=== PATIENT | male | born 1975 | race Caucasian/White ===

== ENCOUNTER 2017-08-27 10:44 | Emergency (ER) | payer MEDICAID ==
--- NOTE | 2017-08-27 11:21 | Emergency Department Record ---
History of Present Illness - General Chief Complaint: Abdominal Pain Stated Complaint: ABD PAIN Time Seen by Provider: 08/27/17 11:00 Source: Patient Mode of Arrival: Ambulatory Limitations: No limitations - History of Present Illness Initial Comments: Pt with 3 month hx of "constant" pain in LLQ abdomen. Pt states it is a "fullness". Not sharp without radiation. No fever, chills, vomiting, no blood in stool, no urinary complaints, not sexually active. Normal BMs without constipation. Had upper and lower GI about 10 years ago. Pt relates recent of his nephew. Anxios and depressed regarding events one week ago. Hx of stated alcohol abuse but he has been good for a long period. Had one drink in last week. Not attending meetings or discussing with family. Denies suicidal thoughts. MD Complaint: Abdominal pain Onset/Timin -: Month(s) Location: LLQ Radiation: None Migration to: No migration, Epigastric Severity scale (1-10): 2 Quality: Other Consistency: Constant Improves With: Other Associated Symptoms: Denies other symptoms - Related Data Allergies Allergy/AdvReac Type Severity Reaction Status Date / Time No Known Drug Allergies Allergy Verified 12/07/15 08:43 Travel Screening - Travel/Exposure Within Last 30 Days Have you traveled within the last 30 days?: No - Travel/Exposure Within Last Year Have you traveled outside the [place] in the last year?: No - Additonal Travel Details Have you been exposed to anyone with a communicable illness?: No - Travel Symptoms Symptom Screening: None Review of Systems Constitutional: Denies: Chills, Fever, Weakness Eyes: Denies: Photophobia, Vision change ENT: Denies: Congestion Respiratory: Denies: Cough, Dyspnea Cardiovascular: Denies: Chest pain, Syncope Endocrine: Denies: Fatigue Gastrointestinal: Reports: As per HPI Genitourinary: Denies: Discharge, Dysuria, Frequency, Testicular pain Musculoskeletal: Denies: Back pain Skin: Denies: Bruising Neurological: Denies: Weakness Psychiatric: Reports: Anxiety Hematological/Lymphatic: Denies: Anemia Past Medical History - SOCIAL HISTORY Smoking Status: Never smoker Alcohol Use: Heavy Alcohol Use Comment: binge at times Drug Use Detail:: Marijuana - RESPIRATORY Hx Respiratory Disorders: No - CARDIOVASCULAR Hx Cardio Disorders: No - NEURO Hx Neuro Disorders: No - GI Hx GI Disorders: Yes Hx Ulcer: Yes - Hx Genitourinary Disorders: No - ENDOCRINE Hx Endocrine Disorders: No - PSYCH Hx Psych Problems: Yes Hx Anxiety: Yes - HEMATOLOGY/ONCOLOGY Hx Hematology/Oncology Disorders: No Family Medical History Any Significant Family History?: No Family Hx Comment (NOT TO BE USED IN PLACE OF ITEMS BELOW): Mother had PUD, Father had colitis Physical Exam - General General Appearance: Alert, Oriented x3, No acute distress Limitations: No limitations - Head Head exam: Atraumatic - Eye Eye exam: Normal appearance, PERRL, EOMI. negative: Nystagmus - ENT ENT exam: Mucous membranes moist, Normal external ear exam, Normal orophraynx, TM's normal bilaterally - Neck Neck exam: Normal inspection - Respiratory Respiratory exam: Normal lung sounds bilaterally. negative: Rhonchi, Wheezes - Cardiovascular Cardiovascular Exam: Regular rate, Normal rhythm. negative: Irregular rhythm - GI/Abdominal GI/Abdominal exam: Soft, Normal bowel sounds. negative: Guarding, Tenderness - Rectal Rectal exam: Deferred, Other (No hernia with standing exam. Tender to LLQ without meass or rebound. ) - exam: Circumcision, Normal inspection. negative: Scrotal swelling, Testicular tenderness - Extremities Extremities exam: Normal inspection - Back Back exam: Reports: Normal inspection - Neurological Neurological exam: Alert, Normal gait, Oriented X3 - Psychiatric Psychiatric exam: Anxious, Other (recent of 14 year old nephew. ) - Skin Skin exam: Normal color Course Vital Signs 08/27/17 10:54 Temperature 97.7 F Pulse Rate 83 Blood Pressure 155/83 Pulse Ox 95 - Reevaluation(s) Reevaluation #1: 08/27/17 12:17 Pt without active AP. Has reactive anxiety due to nephews . Not suicidal. Has PMD for follow up and re eval of 3 month AP history. Will return here if increased pain or concerns. Medical Decision Making - Lab Data Result diagrams: 08/27/17 11:30 08/27/17 11:30 Disposition Disposition: Discharge Clinical Impression: Abdominal pain Disposition: Home, Self-Care Condition: (1) Good Instructions: Abdominal Pain (ED) Additional Instructions: See you family doctor in 1-2 days for recheck and continued care. Return to the ED sooner if worse or concerns. Forms: Patient Portal Access Quality - Quality Measures Quality Measures: N/A - Blood Pressure Screening Does Patient Have Any of the Following: No Blood Pressure Classification: Pre-Hypertensive BP Reading Systolic Measurement: 155 Diastolic Measurement: 83 Screening for High Blood Pressure: < Pre-Hypertensive BP, F/U Documented > [ G8950] Pre-Hypertensive Follow-up Interventions: Follow-up with rescreen every year.
[2017-08-27 11:36] LABS: URINE APPEARANCE CLEAR; URINE BILIRUBIN NEGATIVE (NEGATIVE); URINE BLOOD NEGATIVE (NEGATIVE); URINE COLOR YELLOW; URINE GLUCOSE (UA) NEGATIVE (NEGATIVE); URINE KETONE NEGATIVE (NEGATIVE); URINE LEUKOCYTE ESTERASE NEGATIVE (NEGATIVE); URINE NITRITE NEGATIVE (NEGATIVE); URINE PROTEIN NEGATIVE (NEGATIVE); URINE UROBILINOGEN 0.2 E.U./dL (0.20 - 1.00)
[2017-08-27 11:37] LABS: BASO % 0.5 % (0-6); EOS % 2.3 % (0-6); GRAN % 58.9 % (47-80); HEMATOCRIT 47.8 % (42.0-52.0); HEMOGLOBIN 15.8 gm/dl (14.0-18.0); LYMPH % 26.6 % (16-45); MEAN CELL VOLUME 93.4 fl (81-97); MEAN CORPUSCULAR HEMOGLOBIN 30.9 pg (27-33); MEAN CORPUSCULAR HGB CONC 33.1 g/dl (32-36); MEAN PLATELET VOLUME 10.7 fl (7.4-10.4); MONO % 11.7 % (0-9); PLATELET COUNT 260 K/uL (130-400); RED BLOOD COUNT 5.12 M/uL (4.40-5.70); RED CELL DISTRIBUTION WIDTH 13.1 % (11.5-14.5); WHITE BLOOD COUNT W/O DIFF 7.7 K/uL (4.2-12.2)
[2017-08-27 11:46] LABS: BLOOD UREA NITROGEN 14 mg/dL (6-20); CREATININE 0.7 mg/dL (0.7-1.2); EST GLOMERULAR FILTRATION RATE > 60 mL/min
[2017-08-27 11:49] LABS: GLUCOSE,RANDOM 121 mg/dL (74-109)
--- NOTE | 2017-08-28 14:00 | RADIOLOGY REPORT ---
EXAM: ACUTE ABDOMEN SERIES HISTORY: BLOATING FOR THREE WEEKS. TECHNIQUE: AP supine and upright views of the abdomen were obtained as well as an upright PA view of the chest. Comparison: CT abdomen and pelvis with contrast dated 12/07/15. FINDINGS: Gas and stool are noted throughout a nondilated colon to the level of the rectum. Stool volume is moderate. No bowel dilatation, worrisome air fluid level, mass, organomegaly, suspicious calcification, or free intraperitoneal air is seen. There are degenerative changes scattered within the visualized spine and hips. The heart is not enlarged and the pulmonary vasculature is nondilated. The lungs and pleural spaces are clear. IMPRESSION: 1. NO EVIDENCE OF AN ACUTE INTRAABDOMINAL PROCESS. STOOL VOLUME WITHIN THE COLON AND RECTUM IS MODERATE. 2. CHEST NEGATIVE FOR ACUTE CARDIOPULMONARY DISEASE. JOB NUMBER: [id number] MTDD
== END 2017-08-27 12:30 | disposition home or self-care (01) ==
LOC: ER 10:44
DX: R10.32 Left lower quadrant pain (principal); F41.1 Generalized anxiety disorder; F17.220 Nicotine dependence, chewing tobacco, uncomplicated
CPT/HCPCS: 74022; 80048; 81003; 85025; 99283

== ENCOUNTER 2018-08-23 12:11 | Emergency (ER) | payer SELFPAY ==
--- NOTE | 2018-08-23 12:42 | Emergency Department Record ---
History of Present Illness - General Chief complaint: Pain Stated complaint: CHEST STILL HURTS FROM FALLING ON 08/10/18 Time Seen by Provider: 08/23/18 12:22 Source: Patient Mode of Arrival: Ambulatory Limitations: No limitations - History of Present Illness Initial comments: The patient is here to the ER for "Follow Up." The patient was here 13 days ago after being intoxicated and falling and injuring his R chest. He has a large amount of blood in the R chest and was transferred to [facility] and receive a chest tube. He was discharged to home a week ago and has been weak ever since. Today he is here due to needing a work note. He has been having the R sided CP since the injury but does feel a little better today. There has been no cough, fever, chills, or L sided CP. He also denies any black or blood stools. MD Complaint: Other Onset/Timin -: Week(s) Severity scale (1-10): 6 Quality: Aching Consistency: Constant Improves with: Nothing Worsens with: Nothing Associated Symptoms: Other - Related Data Allergies Allergy/AdvReac Type Severity Reaction Status Date / Time No Known Drug Allergies Allergy Verified 08/23/18 12:20 Travel Screening - Travel/Exposure Within Last 30 Days Have you traveled within the last 30 days?: No Review of Systems Constitutional: Denies: Chills, Fever Eyes: Denies: Eye discharge ENT: Denies: Congestion Respiratory: Denies: Cough, Dyspnea Past Medical History - SOCIAL HISTORY Smoking Status: Never smoker Alcohol Use: Occasional Drug Use: None - RESPIRATORY Hx Respiratory Disorders: No - CARDIOVASCULAR Hx Cardio Disorders: Yes Hx Hypertension: Yes - NEURO Hx Neuro Disorders: No - GI Hx GI Disorders: Yes Hx Ulcer: Yes - Hx Genitourinary Disorders: No - ENDOCRINE Hx Endocrine Disorders: No - MUSCULOSKELETAL Hx Musculoskeletal Disorders: Yes - PSYCH Hx Psych Problems: Yes Hx Anxiety: Yes - HEMATOLOGY/ONCOLOGY Hx Hematology/Oncology Disorders: No Family Medical History Any Significant Family History?: Yes Family Hx Comment (NOT TO BE USED IN PLACE OF ITEMS BELOW): Mother had PUD, Father had colitis Physical Exam - General General Appearance: Alert, Oriented x3, Cooperative, No acute distress - Head Head exam: Atraumatic, Normocephalic, Normal inspection - Eye Eye exam: Normal appearance, PERRL - ENT Throat exam: Normal inspection. negative: Tonsillar erythema, Tonsillar exudate - Neck Neck exam: Normal inspection, Full ROM. negative: Tenderness - Respiratory Respiratory exam: Chest wall tenderness (Mild R sided chest wall tenderness.), Decreased breath sounds (R base.). negative: Normal lung sounds bilaterally - Cardiovascular Cardiovascular Exam: Regular rate, Normal rhythm, Normal heart sounds - GI/Abdominal GI/Abdominal exam: Soft, Normal bowel sounds. negative: Tenderness - Extremities Extremities exam: Normal inspection, Full ROM, Normal capillary refill. negative: Tenderness - Neurological Neurological exam: Alert, Normal gait, Oriented X3. negative: Abnormal gait, Altered, Motor sensory deficit Course Vital Signs 08/23/18 12:17 Temperature 98.1 F Pulse Rate 93 H Respiratory 18 Rate Blood Pressure 145/77 Pulse Ox 98 - Reevaluation(s) Reevaluation #1: The patient is resting comfortably. I did discuss the persistent anemia with the patient and the need for F/U next week with his PCP for recheck and to redraw a CBC. He is to take a Vitamin with Iron daily and use Tylenol for pain. He also is to be off work for a week. The patient's Hgb was 8.8 on 08/14 and 8.7 on 08/15 which was the day of discharge. 08/23/18 13:28 Medical Decision Making - Data Complexity MDM Data: Labs Ordered and/or Reviewed, X-Ray Ordered and/or Reviewed - Lab Data Result diagrams: 08/23/18 12:45 08/23/18 12:45 - Radiology Data Radiology results: Report reviewed (CXR: Decreasing R sided pleural effusion.) Disposition Disposition: Discharge Clinical Impression: Hemothorax, Pleural effusion Disposition: Home, Self-Care Condition: (2) Stable Instructions: Pleural Effusion (ED) Additional Instructions: Please use Tylenol for pain and take a daily vitamin with iron. Please see your family doctor later this week for recheck. Return to the ER for any worsening symptoms. Forms: Patient Portal Access Quality - Quality Measures Quality Measures: N/A - Blood Pressure Screening View Details: Yes Does Patient Have Any of the Following: No Blood Pressure Classification: Hypertensive Reading Systolic Measurement: 145 Diastolic Measurement: 77 Screening for High Blood Pressure: < First Hypertensive BP, F/U Documented > [G8950] First Hypertensive Follow-up Interventions: Referral to alternative/primary care provider.
[2018-08-23 12:57] LABS: ABSOLUTE NEUTROPHIL COUNT 7.95; BASO % 0.5 % (0-6); EOS % 2.6 % (0-6); HEMATOCRIT 27.6 % (42.0-52.0); HEMOGLOBIN 8.4 gm/dl (14.0-18.0); MEAN CELL VOLUME 91.7 fl (81-97); MEAN CORPUSCULAR HEMOGLOBIN 27.9 pg (27-33); MEAN CORPUSCULAR HGB CONC 30.4 g/dl (32-36); MEAN PLATELET VOLUME 9.8 fl (7.4-10.4); MONO % 11.9 % (0-9); PLATELET COUNT 807 K/uL (130-400); RED BLOOD COUNT 3.01 M/uL (4.40-5.70); RED CELL DISTRIBUTION WIDTH 14.1 % (11.5-14.5); WHITE BLOOD COUNT W/O DIFF 11.4 K/uL (4.2-12.2)
[2018-08-23 13:08] LABS: BLOOD UREA NITROGEN 12 mg/dL (6-20); CREATININE 0.6 mg/dL (0.7-1.2); EST GLOMERULAR FILTRATION RATE > 60 mL/min; TOTAL PROTEIN 6.7 g/dL (6.6-8.7)
[2018-08-23 13:10] LABS: GLUCOSE,RANDOM 113 mg/dL (74-109)
[2018-08-23 13:13] LABS: ALBUMIN 3.4 g/dL (4.0-5.0); ALKALINE PHOSPHATASE 80 U/L (40-129); ALT/SGPT 19 U/L (<41); AST/SGOT 15 U/L (10.0-50.0)
--- NOTE | 2018-08-24 07:57 | RADIOLOGY REPORT ---
EXAM: CHEST, TWO VIEWS HISTORY: DIFFICULTY IN BREATHING. CHEST TIGHTNESS. RECENT CHEST TRAUMA. TECHNIQUE: Upright PA and lateral views of the chest were obtained. Comparison: CT angiogram of the chest dated 08/10/18. FINDINGS: The heart is not enlarged. No pulmonary venous hypertension is seen. Right costophrenic angle blunting is demonstrated consistent with a small to moderate sized pleural effusion. There is associated mild right basilar air space disease, unchanged or mildly improved since the prior CTA examination. The retrosternal soft tissue density prominence appears less pronounced. The left lung and pleural space are clear. No definite pneumothorax. No displaced rib fracture. IMPRESSION: 1. SMALL TO MODERATE SIZED RIGHT BASILAR PLEURAL EFFUSION. THIS HAS PROBABLY DECREASED IN SIZE IN THE INTERVAL. RIGHT BASILAR AIR SPACE DISEASE CONSISTENT WITH ATELECTASIS OR LESS LIKELY INFILTRATE. THIS HAS ALSO LIKELY IMPROVED. 2. RETROSTERNAL SOFT TISSUE DENSITY PROMINENCE ALSO IS LIKELY MILDLY IMPROVED IN THE INTERVAL. JOB NUMBER: [id number] MTDD
== END 2018-08-23 13:37 | disposition home or self-care (01) ==
LOC: ER 12:11
DX: S27.1XXD Traumatic hemothorax, subsequent encounter (principal); J90 Pleural effusion, not elsewhere classified; R07.89 Other chest pain; D64.9 Anemia, unspecified; I10 Essential (primary) hypertension; W19.XXXD Unspecified fall, subsequent encounter
CPT/HCPCS: 71046; 80053; 85025; 99283; 99284

== ENCOUNTER 2018-09-14 09:13 | Emergency (ER) | payer MEDICAID ==
[2018-09-14 11:40] LABS: BASO % 0.2 % (0-6); EOS % 0.6 % (0-6); GRAN % 76.1 % (47-80); HEMATOCRIT 38.6 % (42.0-52.0); HEMOGLOBIN 11.8 gm/dl (14.0-18.0); LYMPH % 14.7 % (16-45); MEAN CELL VOLUME 87.3 fl (81-97); MEAN CORPUSCULAR HGB CONC 30.6 g/dl (32-36); MEAN PLATELET VOLUME 11.4 fl (7.4-10.4); MONO % 8.4 % (0-9); PLATELET COUNT 425 K/uL (130-400); RED BLOOD COUNT 4.42 M/uL (4.40-5.70); RED CELL DISTRIBUTION WIDTH 15.6 % (11.5-14.5)
[2018-09-14 11:43] LABS: MEAN CORPUSCULAR HEMOGLOBIN 26.6 pg (27-33)
--- NOTE | 2018-09-14 11:50 | Emergency Department Record ---
History of Present Illness - General Chief Complaint: Difficulty Breathing Stated Complaint: BOWEN Time Seen by Provider: 09/14/18 09:38 Source: Patient Mode of Arrival: Ambulatory Limitations: No limitations - History of Present Illness Initial Comments: pt was working outside and became shaky, lightheaded, sob and diaphoretic. he had a chest injury with a pneumothorax a few weeks ago and was hospitalized at [facility]. he said he has had a spell like this before but it went away Complaint: Shortness of breath Onset/Timin -: Hour(s) Consistency: Constant Improves With: Nothing Worsens With: Exertion Known History Of: Other Context: Occurred during exertion Associated Symptoms: Pain with inspiration - Related Data Home Oxygen Therapy: No Previous Rx's Medication Instructions Recorded Diltiazem HCl [Cardizem Cd] 120 mg PO DAILY #20 cap.er.24h 09/14/18 Allergies Allergy/AdvReac Type Severity Reaction Status Date / Time No Known Drug Allergies Allergy Verified 09/14/18 09:20 Travel Screening - Travel/Exposure Within Last 30 Days Have you traveled within the last 30 days?: No - Travel/Exposure Within Last Year Have you traveled outside the [place] in the last year?: No - Additonal Travel Details Have you been exposed to anyone with a communicable illness?: No - Travel Symptoms Symptom Screening: None Review of Systems Reviewed: No additional complaints except as noted below Constitutional: Reports: As per HPI. Denies: Chills, Fever, Malaise, Night s weats, Weakness, Weight change Eyes: Reports: As per HPI. Denies: Eye discharge, Eye pain, Photophobia, Vision change ENT: Reports: As per HPI. Denies: Congestion, Dental pain, Ear pain, Epistaxis, Hearing loss, Throat pain Respiratory: Reports: As per HPI, Dyspnea. Denies: Cough, Hemoptysis, Stridor, Wheezes Cardiovascular: Reports: As per HPI. Denies: Arrhythmia, Chest pain, Dyspnea on exertion, Edema, Murmurs, Orthopnea, Palpitations, Paroxysmal nocturnal dyspnea, Rheumatic Fever, Syncope Endocrine: Reports: As per HPI. Denies: Fatigue, Heat or cold intolerance, Polydipsia, Polyuria Gastrointestinal: Reports: As per HPI. Denies: Abdominal pain, Constipation, Diarrhea, Hematemesis, Hematochezia, Melena, Nausea, Vomiting Genitourinary: Reports: As per HPI. Denies: Dysuria, Frequency, Hematuria, Incontinence, Retention, Testicular pain, Testicular mass, Urgency Musculoskeletal: Reports: As per HPI. Denies: Arthralgia, Back pain, Gout, Joint swelling, Myalgia, Neck pain Skin: Reports: As per HPI. Denies: Bruising, Change in color, Change in hair/nails, Lesions, Pruritus, Rash Neurological: Reports: As per HPI. Denies: Abnormal gait, Confusion, Headache, Numbness, Paresthesias, Seizure, Tingling, Tremors, Vertigo, Weakness Psychiatric: Reports: As per HPI. Denies: Anxiety, Auditory hallucinations, Depression, Homicidal thoughts, Suicidal thoughts, Visual hallucinations Hematological/Lymphatic: Reports: As per HPI. Denies: Anemia, Blood Clots, Easy bleeding, Easy bruising, Swollen glands Past Medical History - SOCIAL HISTORY Smoking Status: Never smoker Alcohol Use: None Alcohol Use Comment: Quit 3 months ago Drug Use: Occasional Drug Use Detail:: Marijuana - RESPIRATORY Hx Respiratory Disorders: No - CARDIOVASCULAR Hx Cardio Disorders: Yes Hx Hypertension: Yes - NEURO Hx Neuro Disorders: No - GI Hx GI Disorders: Yes Hx Ulcer: Yes - Hx Genitourinary Disorders: No - ENDOCRINE Hx Endocrine Disorders: No - MUSCULOSKELETAL Hx Musculoskeletal Disorders: Yes - PSYCH Hx Psych Problems: Yes Hx Anxiety: Yes - HEMATOLOGY/ONCOLOGY Hx Hematology/Oncology Disorders: No Family Medical History Any Significant Family History?: Yes Family Hx Comment (NOT TO BE USED IN PLACE OF ITEMS BELOW): Mother had PUD, Fa ther had colitis Physical Exam - General General Appearance: Alert, Oriented x3, Cooperative, Mild distress - Head Head exam: Normal inspection - Eye Eye exam: Normal appearance, PERRL, EOMI Pupils: Normal accommodation - ENT ENT exam: Normal exam, Mucous membranes moist, Normal external ear exam, Normal orophraynx Ear exam: Normal external inspection. negative: External canal tenderness Nasal Exam: Normal inspection. negative: Discharge, Sinus tenderness Mouth exam: Normal external inspection, Tongue normal Teeth exam: Normal inspection. negative: Dental caries Throat exam: Normal inspection. negative: Tonsillar erythema, Tonsillar exudate - Neck Neck exam: Normal inspection, Full ROM. negative: Tenderness - Respiratory Respiratory exam: Normal lung sounds bilaterally. negative: Respiratory distress - Cardiovascular Cardiovascular Exam: Normal heart sounds, Irregular rhythm, Tachycardia - GI/Abdominal GI/Abdominal exam: Soft, Normal bowel sounds. negative: Tenderness - Rectal Rectal exam: Deferred - exam: Deferred - Extremities Extremities exam: Normal inspection, Full ROM, Normal capillary refill. negative: Tenderness - Back Back exam: Reports: Normal inspection, Full ROM. Denies: Muscle spasm, Rash noted, Tenderness - Neurological Neurological exam: Alert, Normal gait, Oriented X3, Reflexes normal - Psychiatric Psychiatric exam: Normal affect, Normal mood - Skin Skin exam: Dry, Intact, Normal color, Warm Course Vital Signs 09/14/18 09/14/18 09/14/18 09:22 10:06 10:13 Temperature 98.4 F 98.4 F Pulse Rate 118 H 118 H Pulse Rate [ 141 H Pulse Ox Probe] Respiratory 20 16 16 Rate Blood Pressure 140/92 140/92 Blood Pressure 115/68 [Left Arm] Pulse Ox 99 97 97 09/14/18 10:47 Temperature 98.4 F Pulse Rate 118 H Pulse Rate [ Pulse Ox Probe] Respiratory 16 Rate Blood Pressure 140/92 Blood Pressure [Left Arm] Pulse Ox 97 - Reevaluation(s) Reevaluation #1: 09/14/18 12:01 pts ekg shows new onset afib which converted to nsr 30 min after being in the dept 09/14/18 15:39 d/w dr dudley Reevaluation #2: 09/14/18 15:39 echo normal Medical Decision Making - Lab Data Result diagrams: 09/14/18 Unknown 09/14/18 Unknown Lab Results 09/14/18 Range/Units Unknown WBC 13.0 H (4.2-12.2) K/uL RBC 4.42 (4.40-5.70) M/uL Hgb 11.8 L (14.0-18.0) gm/dl Hct 38.6 L (42.0-52.0) % MCV 87.3 (81-97) fl MCH 26.6 L (27-33) pg MCHC 30.6 L (32-36) g/dl RDW 15.6 H (11.5-14.5) % Plt Count 425 H (130-400) K/uL MPV 11.4 H (7.4-10.4) fl Gran % 76.1 (47-80) % Lymphocytes % 14.7 L (16-45) % Monocytes % 8.4 (0-9) % Eosinophils % 0.6 (0-6) % Basophils % 0.2 (0-6) % Absolute Neutrophils 9.90 Disposition Disposition: Discharge Clinical Impression: Paroxysmal A-fib Disposition: Home, Self-Care Condition: (1) Good Instructions: A-fib (Atrial Fibrillation) (ED) Additional Instructions: follow up with dr dudley or his PA on thursday. return sooner if worse Prescriptions: Diltiazem HCl [Cardizem Cd] 120 mg PO DAILY #20 cap.er.24h Quality - Quality Measures Quality Measures: N/A - Blood Pressure Screening Does Patient Have Any of the Following: No Blood Pressure Classification: Hypertensive Reading Systolic Measurement: 140 Diastolic Measurement: 92 Screening for High Blood Pressure: < First Hypertensive BP, F/U Documented > [G8950] First Hypertensive Follow-up Interventions: Follow-up with rescreen GT 1 day and LT 4 weeks.
[2018-09-14 11:53] LABS: BLOOD UREA NITROGEN 22 mg/dL (6-20)
[2018-09-14 11:54] LABS: CREATININE 1.1 mg/dL (0.7-1.2); EST GLOMERULAR FILTRATION RATE > 60 mL/min
[2018-09-14 11:55] LABS: PARTIAL THROMBOPLASTIN TIME 27.1 SECONDS (24.5-39.1); PROTHROMBIN TIME (PATIENT) 10.6 SECONDS (9.5-12.1); TOTAL PROTEIN 6.9 g/dL (6.6-8.7)
[2018-09-14 11:56] LABS: GLUCOSE,RANDOM 132 mg/dL (74-109)
[2018-09-14 11:59] LABS: ALBUMIN 3.9 g/dL (4.0-5.0); ALKALINE PHOSPHATASE 100 U/L (40-129); ALT/SGPT 13 U/L (<41); AST/SGOT 33 U/L (10.0-50.0)
[2018-09-14 12:04] LABS: BILIRUBIN,DIRECT < 0.2 mg/dL (0-0.3)
--- NOTE | 2018-09-14 15:54 | Emergency Department Record ---
History of Present Illness - General Chief Complaint: Difficulty Breathing Stated Complaint: BOWEN Time Seen by Provider: 09/14/18 09:38 Source: Patient Mode of Arrival: Ambulatory Limitations: No limitations - History of Present Illness Onset/Timin -: Hour(s) Consistency: Constant Improves With: Nothing Worsens With: Exertion Known History Of: Other Context: Occurred during exertion Associated Symptoms: Pain with inspiration - Related Data Home Oxygen Therapy: No Previous Rx's Medication Instructions Recorded Diltiazem HCl [Cardizem Cd] 120 mg PO DAILY #20 cap.er.24h 09/14/18 Allergies Allergy/AdvReac Type Severity Reaction Status Date / Time No Known Drug Allergies Allergy Verified 09/14/18 09:20 Travel Screening - Travel/Exposure Within Last 30 Days Have you traveled within the last 30 days?: No - Travel/Exposure Within Last Year Have you traveled outside the [place] in the last year?: No - Additonal Travel Details Have you been exposed to anyone with a communicable illness?: No - Travel Symptoms Symptom Screening: None Review of Systems Constitutional: Reports: As per HPI. Denies: Chills, Fever, Malaise, Night sweats, Weakness, Weight change Eyes: Reports: As per HPI. Denies: Eye discharge, Eye pain, Photophobia, Vision change ENT: Reports: As per HPI. Denies: Congestion, Dental pain, Ear pain, Epistaxis, Hearing loss, Throat pain Respiratory: Reports: As per HPI, Dyspnea. Denies: Cough, Hemoptysis, Stridor, Wheezes Cardiovascular: Reports: As per HPI. Denies: Arrhythmia, Chest pain, Dyspnea on exertion, Edema, Murmurs, Orthopnea, Palpitations, Paroxysmal nocturnal dyspnea, Rheumatic Fever, Syncope Endocrine: Reports: As per HPI. Denies: Fatigue, Heat or cold intolerance, Polydipsia, Polyuria Gastrointestinal: Reports: As per HPI. Denies: Abdominal pain, Constipation, Diarrhea, Hematemesis, Hematochezia, Melena, Nausea, Vomiting Genitourinary: Reports: As per HPI. Denies: Dysuria, Frequency, Hematuria, Incontinence, Retention, Testicular pain, Testicular mass, Urgency Musculoskeletal: Reports: As per HPI. Denies: Arthralgia, Back pain, Gout, Joint swelling, Myalgia, Neck pain Skin: Reports: As per HPI. Denies: Bruising, Change in color, Change in hair/nails, Lesions, Pruritus, Rash Neurological: Reports: As per HPI. Denies: Abnormal gait, Confusion, Headache, Numbness, Paresthesias, Seizure, Tingling, Tremors, Vertigo, Weakness Psychiatric: Reports: As per HPI. Denies: Anxiety, Auditory hallucinations, Depression, Homicidal thoughts, Suicidal thoughts, Visual hallucinations Hematological/Lymphatic: Reports: As per HPI. Denies: Anemia, Blood Clots, Easy bleeding, Easy bruising, Swollen glands Past Medical History - SOCIAL HISTORY Smoking Status: Never smoker Alcohol Use: None Alcohol Use Comment: Quit 3 months ago Drug Use: Occasional Drug Use Detail:: Marijuana - RESPIRATORY Hx Respiratory Disorders: No - CARDIOVASCULAR Hx Cardio Disorders: Yes Hx Hypertension: Yes - NEURO Hx Neuro Disorders: No - GI Hx GI Disorders: Yes Hx Ulcer: Yes - Hx Genitourinary Disorders: No - ENDOCRINE Hx Endocrine Disorders: No - MUSCULOSKELETAL Hx Musculoskeletal Disorders: Yes - PSYCH Hx Psych Problems: Yes Hx Anxiety: Yes - HEMATOLOGY/ONCOLOGY Hx Hematology/Oncology Disorders: No Family Medical History Any Significant Family History?: Yes Family Hx Comment (NOT TO BE USED IN PLACE OF ITEMS BELOW): Mother had PUD, Father had colitis Physical Exam - General Limitations: No limitations Course Vital Signs 09/14/18 09/14/18 09/14/18 09:22 10:06 10:13 Temperature 98.4 F 98.4 F Pulse Rate 118 H 118 H Pulse Rate [ 141 H Pulse Ox Probe] Respiratory 20 16 16 Rate Blood Pressure 140/92 140/92 Blood Pressure 115/68 [Left Arm] Pulse Ox 99 97 97 09/14/18 09/14/18 09/14/18 10:47 12:00 13:00 Temperature 98.4 F Pulse Rate 118 H Pulse Rate [ 91 H 88 Pulse Ox Probe] Respiratory 16 20 20 Rate Blood Pressure 140/92 Blood Pressure 115/68 130/81 [Left Arm] Pulse Ox 97 97 97 09/14/18 13:52 Temperature Pulse Rate Pulse Rate [ 79 Pulse Ox Probe] Respiratory 20 Rate Blood Pressure Blood Pressure 129/91 [Left Arm] Pulse Ox 97 Medical Decision Making - Lab Data Result diagrams: 09/14/18 Unknown 09/14/18 Unknown Lab Results 09/14/18 09/14/18 09/14/18 Range/Units Unknown Unknown Unknown WBC 13.0 H (4.2-12.2) K/uL RBC 4.42 (4.40-5.70) M/uL Hgb 11.8 L (14.0-18.0) gm/dl Hct 38.6 L (42.0-52.0) % MCV 87.3 (81-97) fl MCH 26.6 L (27-33) pg MCHC 30.6 L (32-36) g/dl RDW 15.6 H (11.5-14.5) % Plt Count 425 H (130-400) K/uL MPV 11.4 H (7.4-10.4) fl Gran % 76.1 (47-80) % Lymphocytes % 14.7 L (16-45) % Monocytes % 8.4 (0-9) % Eosinophils % 0.6 (0-6) % Basophils % 0.2 (0-6) % Absolute Neutrophils 9.90 PT 10.6 (9.5-12.1) SECONDS INR 1.0 APTT 27.1 (24.5-39.1) SECONDS Sodium 142 (136-145) mmol/L Potassium 4.3 (3.4-4.5) mmol/L Chloride 105 (98-107) mmol/L Carbon Dioxide 24.0 (22-29) mmol/L Anion Gap 13.0 (7-16) BUN 22 H (6-20) mg/dL Creatinine 1.1 (0.7-1.2) mg/dL Estimated GFR > 60 mL/min Random Glucose 132 H (74-109) mg/dL Calcium 9.3 (8.6-10.0) mg/dL Total Bilirubin 0.50 (0.2-1.0) mg/dL Direct Bilirubin < 0.2 (0-0.3) mg/dL AST 33 (10.0-50.0) U/L ALT 13 (<41) U/L Alkaline Phosphatase 100 (40-129) U/L Total Protein 6.9 (6.6-8.7) g/dL Albumin 3.9 L (4.0-5.0) g/dL Disposition Disposition: Discharge Clinical Impression: Paroxysmal A-fib Disposition: Home, Self-Care Condition: (1) Good Instructions: A-fib (Atrial Fibrillation) (ED) Additional Instructions: follow up with dr dudley or his PA on thursday. return sooner if worse Prescriptions: Diltiazem HCl [Cardizem Cd] 120 mg PO DAILY #20 cap.er.24h Referrals: Bryson Dudley M.D. [MEDICAL DOCTOR] - [facility] [Provider Group] Forms: Patient Portal Access, Return to Work/School Quality - Quality Measures Quality Measures: N/A - Blood Pressure Screening Does Patient Have Any of the Following: No Blood Pressure Classification: Hypertensive Reading Systolic Measurement: 140 Diastolic Measurement: 92 Screening for High Blood Pressure: < First Hypertensive BP, F/U Documented > [G8950] First Hypertensive Follow-up Interventions: Follow-up with rescreen GT 1 day and LT 4 weeks.
--- NOTE | 2018-09-15 07:59 | CT ANGIOGRAM REPORT ---
EXAM: CT ANGIOGRAM OF THE CHEST HISTORY: SHORTNESS OF BREATH ON EXERTION TODAY. RECENT CHEST TRAUMA WITH HEMOTHORAX. CHEST TUBE REMOVAL ON 08/16/18. TECHNIQUE: Routine CTA examination of the thorax was performed utilizing a pulmonary embolus protocol with 94 ml of Omnipaque 350 utilized. Maximum intensity projection reformatted images are generated in the coronal and sagittal planes. Comparison: CT angiogram of the chest dated 08/10/18. FINDINGS: Opacification of the pulmonary arteries is satisfactory for interpretation. No luminal filling defect is noted in the outflow tract, main arteries, lobar arteries, or proximal segmental arteries to suggest acute pulmonary embolic disease. The heart is not enlarged. There is no evidence of right heart strain. The thoracic aorta is normal in caliber and without dissection. The arch branch vessels are patent. The pulmonary outflow tract and main pulmonary arteries are borderline to mildly prominent. The central airways are clear. There is mild dependent atelectasis in the left lung base. There is a small to moderate sized dependent right basilar pleural effusion with mild smooth pleural thickening consistent with stated history of hemothorax. There is associated air space disease in the right middle lobe and right lower lobe likely relating to atelectasis or less likely infiltrate. There is a small air cyst near the anterior margin of the atelectatic right middle lobe versus tiny loculated hydropneumothorax. This measures 11 x 18 mm. There is prominent intrathoracic extrapleural fat in the anterior right mid hemithorax. Lymphoid tissue in the right hilum and subcarinal region is at the upper limits of normal. There has been interval decrease in size of the previously demonstrated retrosternal hematoma now having a more uniform appearance measuring 6 cm in length x 1.1 cm AP x 3 cm transverse. A healing nondisplaced fracture of the lower sternal body is now identified. This was not well seen on the prior examination. There is redemonstration of a low density left adrenal gland mass measuring 3.2 x 3.2 cm. This measures 13 Hounsfield units in density and is consistent with a lipid rich adenoma. The right adrenal gland is normal in appearance. IMPRESSION: 1. NO CTA EVIDENCE OF ACUTE PULMONARY EMBOLIC DISEASE. 2. INTERVAL DECREASE IN SIZE OF THE PREVIOUSLY DEMONSTRATED RETROSTERNAL MEDIASTINAL HEMATOMA. HEALING NONDISPLACED FRACTURE OF THE LOWER STERNAL BODY. 3. LOCULATED RIGHT PLEURAL EFFUSION IS SMALLER IN SIZE THAN ON THE PRIOR EXAMINATION AND NOW IS ASSOCIATED WITH PLEURAL THICKENING CONSISTENT WITH STATED HISTORY OF HEMOTHORAX. SUPERIMPOSED INFECTION IS LESS LIKELY. 4. ATELECTASIS OR LESS LIKELY INFILTRATE WITHIN THE RIGHT MIDDLE LOBE AND RIGHT LOWER LOBE. 5. TINY GAS FLUID COLLECTION NEAR THE ANTERIOR MARGIN OF THE ATELECTATIC RIGHT MIDDLE LOBE CONSISTENT WITH AIR CYST OR SMALL LOCULATED HYDROPNEUMOTHORAX. THIS MEASURES 18 X 11 MM. 6. 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 JOB NUMBER: [id number] [facility]
[2018-09-15] MEDS ORDERED: DILTIAZEM HCL 120 MG ER CAPSULE PO SCH (10:00)
== END 2018-09-14 16:01 | disposition home or self-care (01) ==
LOC: ER 09:13
DX: I48.0 Paroxysmal atrial fibrillation (principal); R06.00 Dyspnea, unspecified; R42 Dizziness and giddiness
CPT/HCPCS: 99284 ×2; 85025; 85730; 85610; 80076; 80048; 71275; 93005; 93010; 93306; Q9967